=== PATIENT | female | born 1965 | race Caucasian/White ===

== ENCOUNTER 2021-04-01 13:52 | Emergency (ER) | payer OTHER ==
[~2021-04-01] VITALS: Ht 165.1 cm; Wt 77.3 kg
[2021-04-01] MEDS ORDERED: METO25 PO (14:01)
[2021-04-01] MEDS ORDERED: LISI-659 PO (14:01)
[2021-04-01] MEDS ORDERED: CARISOPRODOL 350 MG TABLET PO ONE (14:30)
[2021-04-01] MEDS ORDERED: ONDANSETRON HCL 4 MG TABLET PO ONE (14:30)
[2021-04-01] MEDS ORDERED: KETOROLAC TROMETHAMINE 10 MG TABLET PO ONE (14:30)
[2021-04-01] MEDS ORDERED: ACETAMINOPHEN 500 MG TABLET PO ONE (16:45)
[2021-04-01 16:46] VITALS: BP 139/90
== END 2021-04-01 17:03 | disposition home or self-care (01) ==
LOC: EMS 13:52
DX: S13.8XXA Sprain of joints and ligaments of other parts of neck, initial encounter (principal); R51.9 Headache, unspecified; V49.9XXA Car occupant (driver) (passenger) injured in unspecified traffic accident, initial encounter; Y93.89 Activity, other specified; Y92.488 Other paved roadways as the place of occurrence of the external cause; Y99.8 Other external cause status
CPT/HCPCS: 70450; 72125; 99285; Q0162